=== PATIENT | male | born 1985 ===

== ENCOUNTER 2017-07-23 10:26 | Emergency (ER) | payer OTHER ==
[2017-07-23] MEDS ORDERED: DOXYcycline CAP(*) 100 MG PO ONE (12:16)
--- NOTE | 2017-07-23 12:18 | UC ---
Skin Complaint HPI - HPI Summary HPI Summary: Patient believes he got a tick attached to his right lower leg 3 days ago. Patient removed the tick last night. Patient is here today seeking postexposure prophylaxis for Lyme - History of Current Complaint Hx Obtained From: Patient Onset/Duration: Sudden Onset, Lasting Days - 3 Timing: Constant Pain Intensity: 0 Pain Scale Used: 0-10 Numeric Location: Discrete - right lower leg Aggravating Factor(s): Nothing Alleviating Factor(s): Nothing Associated Signs & Symptoms: Positive: Negative Related History: Insect Bite/Sting <Divina Aguero - Last Filed: 07/23/17 12:21> <Lilly Abdi - Last Filed: 07/23/17 13:23> - History of Current Complaint Chief Complaint: [facility] Time Seen by Provider: 07/23/17 12:08 Stated Complaint: TICK - Allergy/Home Medications Allergies/Adverse Reactions: Allergies Allergy/AdvReac Type Severity Reaction Status Date / Time No Known Allergies Allergy Verified 07/23/17 11:47 Home Medications: Home Medications NK [No Home Medications Reported] 07/23/17 [History Confirmed 07/23/17] Review of Systems Constitutional: Negative Skin: Other - 1-2 mm diameter erythema RRL at tick site Eyes: Negative ENT: Negative Respiratory: Negative Cardiovascular: Negative Gastrointestinal: Negative Genitourinary: Negative Motor: Negative Neurovascular: Negative Musculoskeletal: Negative Neurological: Negative Psychological: Negative Is Patient Immunocompromised?: No All Other Systems Reviewed And Are Negative: Yes <Divina Aguero - Last Filed: 07/23/17 12:21> PMH/Surg Hx/FS Hx/Imm Hx Previously Healthy: Yes - Surgical History Surgical History: Yes Surgery Procedure, Year, and Place: as undescended testicle as child - Family History Known Family History: Positive: None - Social History Occupation: Employed Full-time Lives: With Family Alcohol Use: None Substance Use Type: None Smoking Status (MU): Light Every Day Tobacco Smoker <Divina Aguero - Last Filed: 07/23/17 12:21> Physical Exam Triage Information Reviewed: Yes Appearance: Well-Appearing, No Pain Distress, Well-Nourished Vital Signs: Initial Vital Signs Temp 96.7 F 07/23/17 11:43 Pulse 81 07/23/17 11:43 Resp 15 07/23/17 11:43 BP 120/77 07/23/17 11:43 Pulse Ox 99 07/23/17 11:43 Vital Signs Reviewed: Yes Eye Exam: Normal Eyes: Positive: Conjunctiva Clear ENT Exam: Normal ENT: Positive: Normal ENT inspection, Hearing grossly normal. Negative: Trismus , Muffled voice, Hoarse voice - REMEMBER that Dental Exam: Normal Neck exam: Normal Neck: Positive: Supple, Nontender Respiratory Exam: Normal Respiratory: Positive: Chest non-tender, No respiratory distress, No accessory muscle use Cardiovascular Exam: Normal Cardiovascular: Positive: RRR, Pulses Normal, Brisk Capillary Refill Musculoskeletal Exam: Normal Musculoskeletal: Positive: Strength Intact, ROM Intact, No Edema Neurological Exam: Normal Neurological: Positive: Alert, Muscle Tone Normal Psychological Exam: Normal Skin Exam: Normal <Divina Aguero - Last Filed: 07/23/17 12:21> Vital Signs: Initial Vital Signs Temp 96.7 F 07/23/17 11:43 Pulse 81 07/23/17 11:43 Resp 15 07/23/17 11:43 BP 120/77 07/23/17 11:43 Pulse Ox 99 07/23/17 11:43 <Lilly Abdi - Last Filed: 07/23/17 13:23> Course/Dx - Course Course Of Treatment: Doxycycline 200mg times one now. Mild soap and water wash, observe for s/s of lyme follow with pcp prn - Diagnoses Provider Diagnoses: tick exposure, Lyme PEP <Divina Aguero - Last Filed: 07/23/17 12:21> Discharge - Sign-Out/Discharge Documenting (check all that apply): Discharge/Admit/Transfer - Billing Disposition and Condition Condition: STABLE Disposition: Home <Divina Aguero - Last Filed: 07/23/17 12:21> - Billing Disposition and Condition Condition: STABLE Disposition: Home <Lilly Abdi - Last Filed: 07/23/17 13:23> - Discharge Plan Condition: Stable Disposition: HOME Patient Education Materials: Doxycycline (By mouth), Tick Bite (ED) Referrals: [facility] [Outside] - If Needed [facility] [place] [facility] [Outside] - If Needed Attestation Statement User Type: Provider - I was available for consult. This patient was seen by the JEREMIAH. The patient was not presented to, seen by, or examined by me. -Danni <Lilly Abdi - Last Filed: 07/23/17 13:23>
== END 2017-07-23 12:26 | disposition home or self-care (01) ==
LOC: UCEAST 10:26
DX: R23.8 Other skin changes (principal); F17.200 Nicotine dependence, unspecified, uncomplicated; W57.XXXA Bitten or stung by nonvenomous insect and other nonvenomous arthropods, initial encounter; Y92.9 Unspecified place or not applicable
CPT/HCPCS: 99202; A9270-GY; G0463

== ENCOUNTER 2017-09-29 11:10 | Emergency (ER) | payer OTHER ==
--- NOTE | 2017-09-29 13:02 | ED ---
GI/ HPI - HPI Summary HPI Summary: C/O RT TESTICLE SWELLING, PAIN, NAUSEA, INC URINARY URGE X 1 WEEK. DENIES TRAUMA , PENILE D/C, OTHER URINE SX, FEVER, ABDO PAIN, V/D. STATES PAIN IS BETTER WITH ELEVATION OF TESTICLE. HX OF EPIDIDYMITIS. HAS NOT BEEN SEXUALLY ACTIVE FOR A COUPLE MONTHS. MED HX = NONE. ABDO/PEL SURGICAL HX IS NONE. - History of Current Complaint Chief Complaint: UCGU Time Seen by Provider: 09/29/17 12:15 Stated Complaint: PRIVATE Hx Obtained From: Patient Onset/Duration: Started Days Ago Timing: Constant Severity: Mild Current Severity: Mild Pain Intensity: 3 Additional Locations for Males: Testicles Pain Characteristics: Dull, Aching Associated Signs and Symptoms: Positive: Nausea - Allergy/Home Medications Allergies/Adverse Reactions: Allergies Allergy/AdvReac Type Severity Reaction Status Date / Time No Known Allergies Allergy Verified 09/29/17 11:57 PMH/Surg Hx/FS Hx/Imm Hx Endocrine/Hematology History: Denies: Hx Diabetes, Hx Thyroid Disease GI History: Denies: Hx Ulcer - Surgical History Surgery Procedure, Year, and Place: R undescended testicle as child Infectious Disease History: No Infectious Disease History: Denies: Traveled Outside the [place] in Last 30 Days - Family History Known Family History: Positive: None - Social History Alcohol Use: Daily Alcohol Amount: beer Substance Use Type: Reports: None Smoking Status (MU): Light Every Day Tobacco Smoker Type: Cigarettes Amount Used/How Often: 4 per day Length of Time of Smoking/Using Tobacco: since age 16 Have You Smoked in the Last Year: Yes Review of Systems Constitutional: Negative Eyes: Negative ENT: Negative Cardiovascular: Negative Respiratory: Negative Gastrointestinal: Negative Positive: see HPI Musculoskeletal: Negative Skin: Negative Neurological: Negative Psychological: Normal All Other Systems Reviewed And Are Negative: Yes Physical Exam - Summary Physical Exam Summary: NO GENITAL LESIONS NOTED. NO PENILE D/C OR ABNORMALITIES NOTED. NOTED. CIRCUMSIZED MALE WITH NORMAL APPEARANCE OF PENIS RT TESTICLE SWOLLEN AND TENDER TO TOUCH, MOST TENDER AT PROXIMAL END OF RT TESTICLE. PAIN DEC WITH ELEVATION OF RT TESTICLE. NO HORIZONTAL LIE NOTED TO EITHER TESTICLE. Triage Information Reviewed: Yes Vital Signs On Initial Exam: Initial Vitals Temp Pulse Resp BP Pulse Ox 96.7 F 67 14 104/62 100 09/29/17 11:50 09/29/17 11:50 09/29/17 11:50 09/29/17 11:50 09/29/17 11:50 Vital Signs Reviewed: Yes Appearance: Positive: Well-Appearing Skin: Positive: Warm Head/Face: Positive: Normal Head/Face Inspection Eyes: Positive: Normal Neck: Positive: Supple Respiratory/Lung Sounds: Positive: Clear to Auscultation Cardiovascular: Positive: Normal Abdomen Description: Positive: Nontender Male Genital Exam: Positive: Normal Genitalia, Epididymal Tenderness, Erythema, Testicular Tenderness (R). Negative: No Hernia, Bleeding, Hernia Mass, Lesions , Scrotum Tenderness (R), Scrotum Tenderness (L), Testicular Tenderness (L), Urethral Discharge Musculoskeletal: Positive: Normal Neurological: Positive: Normal Psychiatric: Positive: Normal AVPU Assessment: Alert - [place] Coma Scale Best Eye Response: 4 - Spontaneous Best Motor Response: 6 - Obeys Commands Best Verbal Response: 5 - Oriented Coma Scale Total: 15 Diagnostics - Vital Signs Vital Signs Temp Pulse Resp BP Pulse Ox 09/29/17 11:50 96.7 F 67 14 104/62 100 - Laboratory Lab Results: Lab Results 09/29/17 Range/Units 12:40 POC Urine Color Yellow POC Urine Clarity Clear POC Urine pH 8.5 (5-9) POC Ur Specif [place] 1.020 (1.010-1.030) POC Urine Protein Negative (Negative) POC Ur Glucose (UA) Negative (Negative) POC Urine Ketones Negative (Negative) POC Urine Blood Negative (Negative) POC Urine Nitrite Negative (Negative) POC Urine Bilirubin Negative (Negative) POC Urine Urobilinogen 0.2 (Negative) POC U Leukocyte Esteras Negative (Negative) Lab Statement: Any lab studies that have been ordered have been reviewed, and results considered in the medical decision making process. - Ultrasound No standard instances Ultrasound Interpretation: Positive (See Comments) - ORCHITIS Ultrasound Interpretation Completed By: Radiologist GIGU Course/Dx - Course Course Of Treatment: C/O RT TESTICLE SWELLING, PAIN, NAUSEA, INC URINARY URGE X 1 WEEK. DENIES TRAUMA, PENILE D/C, OTHER URINE SX, FEVER, ABDO PAIN, V/D. STATES PAIN IS BETTER WITH ELEVATION OF TESTICLE. HX OF EPIDIDYMITIS. HAS NOT BEEN SEXUALLY ACTIVE FOR A COUPLE MONTHS. MED HX = NONE. ABDO/PEL SURGICAL HX IS NONE. PHYSICAL EXAM: NO GENITAL LESIONS NOTED. NO PENILE D/C OR ABNORMALITIES NOTED. NOTED. CIRCUMSIZED MALE WITH NORMAL APPEARANCE OF PENIS RT TESTICLE SWOLLEN AND TENDER TO TOUCH, MOST TENDER AT PROXIMAL END OF RT TESTICLE. PAIN DEC WITH ELEVATION OF RT TESTICLE. NO HORIZONTAL LIE NOTED TO EITHER TESTICLE. VS NML. US TESTICLES NEG FOR TORSION. POSTIVE ORCHITIS. NO THROAT SX. PT <33YO, HETEROSEXUAL, BUT STATES NOT SEXUALLY ACTIVE FOR 4 MONTHS. ROCEPHIN 250 IM AND AZITHROMYCIN 1000MG PO HERE. RX FOR LEVAQUIN 500 DAILY X 10 DAYS - Diagnoses Provider Diagnoses: Orchitis of left testicle Discharge - Sign-Out/Discharge Documenting (check all that apply): Patient Departure - Discharge Plan Condition: Stable Disposition: HOME Prescriptions: Levofloxacin TAB* [Levaquin TAB*] 500 mg PO DAILY 10 Days #10 tab Patient Education Materials: Epididymo-Orchitis (ED) Referrals: No Primary Care Phys,NOPCP [Primary Care Provider] - Additional Instructions: TALE ANTIBIOTICS DIRECTED. RETURN FOR ANY NEW OR WORSENING SYMPTOMS. - Billing Disposition and Condition Condition: STABLE Disposition: Home
[2017-09-29] MEDS ORDERED: Azithromycin TAB* 250 MG PO ONE (13:54)
[2017-09-29] MEDS ORDERED: cefTRIAXone VIAL(*) 250 MG VIAL IM ONE (13:54)
--- NOTE | 2017-09-29 14:03 | RAD ---
HISTORY: testicular pain COMPARISONS: None TECHNIQUE: Multiple transverse and longitudinal ultrasound images were obtained of the scrotum, using grayscale, color Doppler, and spectral Doppler imaging. FINDINGS: RIGHT: RIGHT TESTICLE: The right testicle measures 4.3 x 2 x 3.3 cm. The right testicle is homogeneous in echotexture, without testicular parenchymal mass. Normal arterial and venous waveforms are identified within the right testicle on spectral Doppler imaging. The right testicle is mildly hypervascular. RIGHT EPIDIDYMIS: The right epididymis measures 1.2 cm at the head. There is a 0.4 cm cyst of the epididymal head. RIGHT SCROTUM: There is no hydrocele or varicocele. LEFT: LEFT TESTICLE: The left testicle measures 4.2 x 1.7 x 2.7 cm. Left testicle is mildly heterogeneous in echo texture without focal testicular parenchymal mass. Normal arterial and venous waveforms are identified within the left testicle on spectral Doppler imaging. The left testicle is mildly hypervascular. LEFT EPIDIDYMIS: The left epididymis measures 1.1 cm at the head. There is a 0.3 cm cyst of the left epidural head. LEFT SCROTUM: There is no hydrocele or varicocele. OTHER: None IMPRESSION: 1. HETEROGENEOUS ECHOTEXTURE TO THE LEFT TESTICLE WITH MILDLY HYPERVASCULAR TESTICLES BILATERALLY, SUGGESTIVE OF ORCHITIS IN THE CORRECT CLINICAL SETTING. 2. NO TESTICULAR PARENCHYMAL MASS. 3. NO SONOGRAPHIC FEATURES OF TORSION. PLEASE NOTE THAT PARTIAL OR INTERMITTENT TORSION MAY BE SONOGRAPHICALLY NORMAL.
[2017-09-29] MEDS ORDERED: Lidocaine 1%* 5 ML VIAL ONE (14:06)
[2017-09-29 14:19] VITALS: BP 103/62
== END 2017-09-29 14:30 | disposition home or self-care (01) ==
LOC: UCEAST 11:10
DX: N45.2 Orchitis (principal); R11.0 Nausea; F17.210 Nicotine dependence, cigarettes, uncomplicated
CPT/HCPCS: 76870; 81003; 87491; 87591; 96372; 99212; A9270-GY; G0463; J0696